=== PATIENT | male | born 1935 | race Caucasian/White ===

== ENCOUNTER 2022-06-19 15:57 | Outpatient (CLI) | payer OTHER, SELFPAY ==
--- NOTE | ~2022-06-19 | XR_ITS ---
Clinical Indication: Right bundle branch block PA and lateral views of the chest: Comparison: 12/29/2011 Findings: The lungs are clear, without evidence of focal consolidation or pleural effusion. Probable COPD. Cardiomediastinal silhouette is within normal limits. Bones and soft tissues are unremarkable. Impression: COPD. Clear lungs. Reviewed, dictated and finalized at location . [employer] CR[employer]RE Impression: COPD. Clear lungs.
[2022-06-19 16:57] LABS: Anion Gap 7 mmol/L (8-16); Blood Urea Nitrogen 16 mg/dL (9-20); Calcium 9.1 mg/dL (8.4-10.2); Carbon Dioxide 30 mmol/L (22-30); Chloride 103 mmol/L (98-107); Estimated Glomerular Filt Rate > 60; Glucose 135 mg/dL (65-110); Potassium 4.1 mmol/L (3.4-5.0); Sodium 140 mmol/L (137-145)
[2022-06-19 18:37] LABS: Creatinine Urine 130.7 mg/dL
[2022-06-19 18:42] LABS: MALB Creatinine Ratio 23.6 mg/g (0-30); Microalbumin Urine Random 30.8 mg/L (0-16.7)
== END 2022-06-19 15:58 | disposition home or self-care (01) ==
PROVIDERS: PCP Internal Medicine; Visit Provider Nurse Practitioner Family
DX: J44.9 Chronic obstructive pulmonary disease, unspecified (principal); I45.10 Unspecified right bundle-branch block; I45.2 Bifascicular block; I48.0 Paroxysmal atrial fibrillation; I07.1 Rheumatic tricuspid insufficiency; I63.9 Cerebral infarction, unspecified; E78.5 Hyperlipidemia, unspecified; D12.6 Benign neoplasm of colon, unspecified
CPT/HCPCS: 36415; 71046; 80048; 82043